=== PATIENT | male | born 1970 | race Two or more races ===

== ENCOUNTER 2023-01-30 10:48 | Emergency (ER) | payer OTHER ==
[~2023-01-30] VITALS: Ht 180.3 cm; Wt 95.3 kg
--- NOTE | 2023-01-30 11:05 | NUR ---
BIBRA39 FROM HOME, SUICIDE ATTEMPT INGESTING UNKNOWN AMOUNT OF TRAMADOL AND HYDROXIZINE PILLS THIS MORNING. PLACED IN BED, AAOX4- COOPERATIVE RESPONDING TO QUESTIONS, DENIES SI, PATIENT WANDED BELONGINS TAKEN- AT SAFETY ROOM, WILL CONTINUE TO MONITOR.
--- NOTE | 2023-01-30 11:11 | NUR ---
LINE CONSTRUCTION SUPERVISOR AT BEDSIDE, URINE SAMPLE SENT TO LAB
[2023-01-30 11:25] LABS: BASOPHILS % (AUTO) 0.3 % (0.0-2.0); EOSINOPHILS % (AUTO) 0.6 % (0.0-6.0); HEMATOCRIT 39 % (39-51); HEMOGLOBIN 13.3 g/dL (13.5-17.5); LYMPHOCYTES # (AUTO) 1.1 K/uL (0.8-4.8); LYMPHOCYTES % (AUTO) 18.6 % (20.0-44.0); MEAN CORPUSCULAR HGB CONC 34 g/dl (31.0-36.0); MEAN CORPUSCULAR VOLUME 90 fL (80-96); MONOCYTES # (AUTO) 0.6 K/uL (0.1-1.30); MONOCYTES % (AUTO) 9.3 % (2.0-12.0); NEUTROPHILS # (AUTO) 4.3 K/uL (1.8-8.9); NEUTROPHILS % (AUTO) 71.2 % (43.0-81.0); PLATELET COUNT (AUTO) 194 K/uL (150-450); RED BLOOD CELL COUNT(AUTO) 4.35 MIL/uL (4.5-6.0); WHITE BLOOD COUNT (AUTO) 6.1 K/uL (4.3-11.0)
[2023-01-30 11:33] LABS: BILIRUBIN,URINE NEGATIVE (NEGATIVE); COLOR,URINE YELLOW (YELLOW); LEUKOCYTE ESTERASE ,URINE NEGATIVE (NEGATIVE); NITRITE, URINE NEGATIVE (NEGATIVE); PH,URINE 8.5 (5.0-8.0); PROTEIN,URINE TRACE mg/dl (NEGATIVE); UGLUCOSE NEGATIVE (NEGATIVE)
[2023-01-30 11:41] LABS: ACETAMINOPHEN < 10 ug/ml (10-30); ALANINE AMINOTRANSFERASE 29 U/L (12-78); ALBUMIN 4.1 g/dL (3.4-5.0); ALKALINE PHOSPHATASE 64 U/L (46-116); ASPARTATE AMINOTRANSFERASE 27 U/L (15-37); BILIRUBIN,DIRECT 0.2 mg/dL (0.0-0.2); BILIRUBIN,TOTAL 0.7 mg/dL (0.2-1.0); CALCIUM, SERUM 9.2 mg/dL (8.5-10.1); CARBON DIOXIDE 23 mmol/L (21-32); CHLORIDE 106 mmol/L (98-107); CREATININE 0.9 mg/dL (0.6-1.3); GLUCOSE 112 mg/dL (74-106); POTASSIUM 3.2 mmol/L (3.5-5.1); SODIUM SERUM 139 mmol/L (136-145); UREA NITROGEN, BLOOD 24 mg/dL (7-18)
[2023-01-30 11:44] LABS: ALCOHOL, BLOOD < 3 mg/dL (0-0)
[2023-01-30 11:45] LABS: BACTERIA,URINE None seen /HPF (None Seen); RBC,URINE 0-2 /HPF (0-2); SQUAMOUS EPITHELIAL CELL,UR Rare /HPF (None Seen); WBC,URINE 0-2 /HPF (0-3)
--- NOTE | 2023-01-30 14:25 | NUR ---
SS NOTE: SW met with pt.at bedside. The pt. is a 52 year old male who was BIBRA from home after attempted suicide by OD on medication. The pt. is alert & oriented x 4 and makes good eye contact. The pt. has depressed mood and affect. The pt. remained calm & cooperative throughout assessment. The pt. states he still has some suicidal ideation. SW offered [facility]at[facility] and pt. agreed to this plan. The pt. is ambulatory and independent with his ADL's. The pt. states his support system incudes his sister, Tamara [phone]. Pt. states he lives at home [[address] [facility] [address]] with a female friend. Plan: Pt. will be referred pt. to [facility] [[address] [place] [address] FAX:[phone]] for inpatient psychiatric treatment. Patient was provided with outpatient mental health resources and he accepted them : Mental Health [facility]Counseling Services Monika Feliz [address] [place] [address] Services: Outpatient therapy for children, teens, young adults, adults, older adults, and families; Psychiatric services, medication support [facility] (Behavioral Health) [facility] [place] [address] Operation Hours: MON - FRI 8:00 a.m. - 5:00 p.m. Walk In Hours: MON - MON 8:00 a.m. - 5:00 p.m. Mental Health Services: [facility] (FCCS) (Medication Support, Mental Health Services, Peer Support o NOTE: [facility] Center 22/05 helpline: [facility] [address], [place] [address] (Specializes in in-depth psychotherapy for emotional distress: anxiety, depression, interpersonal conflicts, life transitions, childhood abuse) [facility] [place] (Behavioral Health) [address], 2nd [place] [address] Main Number: [facility] (AFSP): Contact [facility] [address] [place] [address] (Assist with solving problem marital difficulties, separation & divorce, aging parents, & grief, chronic & terminal illness) [facility] [address] [place] [address] (Deal with loss & grief, anxiety, marital difficulties) [facility] Health [facility] [address], [address] [place], [place] [id number] (Provide in-home mental services to people who are incapable of leaving their homes) [facility] [address] [place] [address] [facility] [address] [place] [address] PSYCHIATRIC OUTPATIENT SERVICES [facility] Partial Hospitalization and Intensive Outpatient Program (Managed Care and [place] Only) [address] [facility] Services [address]; [phone] [facility] Partial Hospitalization and Outpatient Program [address] [place] [address]; [phone] [facility] [address] [place], [place] [phone] [facility] Partial Hospitalization and Outpatient [address] [place] ; [phone] ;[phone] [facility] Crisis stabilization, medication support mental health services [address] [facility] [address] Appointment needed HEBER JULIETTE COUNT INCLUDES THE [facility] [address] [place] [address] [place] Crisis and Hotline Telephone Numbers: 24-Hour service unless stated [place] Mental Health/Crisis Line........[phone] Suicide Prevention Center (24 Hours).......[phone] Suicide Prevention Crisis Center.......[phone] (24 Hours) Alcoholics Anonymous (24 Hours)..........[phone] National Crisis Hotlines: Alcohol and Drug Helpline - Provides referrals to local facilities where adolescents and adults can seek help. Brief intervention. [facility] Helpline [facility] [place] [facility] 9-200-187-SNKB National Youth Crisis Hotline [facility] Provides free information on specific disorders, referral directory to mental health providers, national directory of local mental health associations (M-F, 9-5 EST) National [employer] of Mental Health Information Line: Provides information and literature on mental illness by disorder-for professionals and general public. [facility] Substance Abuse Self-helpline ([facility]) Contact number . Call the hotline and the ball rolling machine operator will screen and link individual to an appropriate program. Must have Medi-hima or be Medi-hima eligible.
--- NOTE | 2023-01-30 14:26 | NUR ---
WOLF AT BEDSIDE.
--- NOTE | 2023-01-30 14:59 | NUR ---
SWAB FOR COVID19 SENT TO LAB
[2023-01-30 17:12] VITALS: BP 147/74
--- NOTE | 2023-01-30 21:20 | NUR ---
patient was transferred to [facility] in stable condition
--- NOTE | 2023-01-30 21:35 | NUR ---
PATIENT TAKEN BY [facility] FOR TRANSFER IN A STABLE- COOPERATIVE CONDITION.
== END 2023-01-30 21:35 ==
LOC: ER 10:52
DX: R45.851 Suicidal ideations (principal); T43.592A Poisoning by other antipsychotics and neuroleptics, intentional self-harm, initial encounter; T40.422A Poisoning by tramadol, intentional self-harm, initial encounter; T39.1X2A Poisoning by 4-Aminophenol derivatives, intentional self-harm, initial encounter; Z20.822 Contact with and (suspected) exposure to COVID-19; Z60.2 Problems related to living alone; Y92.89 Other specified places as the place of occurrence of the external cause
CPT/HCPCS: 99285; 85025; 80048; 80076; 81001; 36415; 87426; 80143; 80320; 80307; C9803; G0480